=== PATIENT | male | born 1950 | race Caucasian/White ===

== ENCOUNTER → 2017-05-16 | Outpatient (CLI) | payer OTHER | END | disposition home or self-care (01) | LOC: CFH 07:18 | PROVIDERS: ATTEND Internal Medicine | DX: H54.62 Unqualified visual loss, left eye, normal vision right eye (principal); I65.23 Occlusion and stenosis of bilateral carotid arteries | CPT/HCPCS: 93880 ==

== ENCOUNTER → 2017-07-10 | Outpatient (CLI) | payer OTHER | END | disposition home or self-care (01) | LOC: CFH 08:15 | PROVIDERS: ATTEND Internal Medicine Gastroenterology | DX: N26.1 Atrophy of kidney (terminal) (principal); K74.60 Unspecified cirrhosis of liver; B18.2 Chronic viral hepatitis C; K76.0 Fatty (change of) liver, not elsewhere classified | CPT/HCPCS: 76700 ==

== ENCOUNTER 2018-01-11 11:51 | Emergency (ER) | payer OTHER ==
[~2018-01-11] VITALS: Ht 177.8 cm; Wt 111.0 kg
[2018-01-11] MEDS ORDERED: NALOXONE 1 MG/ML, 2ML ONE (12:07)
[2018-01-11] MEDS ORDERED: ONDANSETRON 2MG/ML, 2ML ONE (12:16)
[2018-01-11 12:23] LABS: BASOPHILS # (AUTO) 0.03 x10^3/uL (0-0.1); BASOPHILS % (AUTO) 0 % (0-1); EOSINOPHILS # (AUTO) 0.12 x10^3/uL (0-0.4); EOSINOPHILS % (AUTO) 2 % (1-7); LYMPHOCYTES % (AUTO) 16 % (22-44); MD NO; MEAN CORPUSCULAR HEMOGLOBIN 31.5 pg (27.5-34.5); MEAN CORPUSCULAR HGB CONC 33.6 g/dL (33.2-36.2); MEAN CORPUSCULAR VOLUME 93.7 fL (81-97); MONOCYTES # (AUTO) 0.64 x10^3/uL (0.2-0.8); MONOCYTES % (AUTO) 9 % (2-9); NEUTROPHILS # (AUTO) 5.03 x10^3/uL (1.8-6.8); NEUTROPHILS % (AUTO) 73 % (42-75); PLATELET COUNT 208 x10^3/uL (130-400); RED BLOOD COUNT 4.86 x10^6/uL (4.38-5.82); RED CELL DISTRIBUTION WIDTH 13.9 % (9.4-14.8)
[2018-01-11 12:30] LABS: INTERNATIONAL NORMALIZED RATIO 1.02 (0.93-1.1); PROTHROMBIN TIME 10.6 Seconds (9.6-11.5)
[2018-01-11] MEDS ORDERED: ONDANSETRON 2MG/ML, 2ML IVPush ONE (12:30)
[2018-01-11] MEDS ORDERED: SUCCINYLCHOLINE 20 MG/ML, 10ML IVPush ONE (12:30)
[2018-01-11] MEDS ORDERED: PROPOFOL 100 ML IV PRN (12:30)
[2018-01-11] MEDS ORDERED: ETOMIDATE 20 MG/10 ML IVPush ONE (12:30)
[2018-01-11] MEDS ORDERED: ALTEPLASE 1 MG/ML ONE ×2 (12:47→13:15)
[2018-01-11] MEDS ORDERED: PLEASE ENTER PATIENTS WEIGHT MC SCH (13:00)
[2018-01-11] MEDS ORDERED: MIDAZOLAM 1 MG/ML, 5ML IVPush ONE (13:00)
[2018-01-11] MEDS ORDERED: OMNIPAQUE 350 MG/ML, 100ML BOTTLE ONE (13:15)
[2018-01-11 13:23] LABS: FIO2 80 %
[2018-01-11] MEDS ORDERED: SUCCINYLCHOLINE 20 MG/ML, 10ML ONE (14:00)
[2018-01-11] MEDS ORDERED: PROPOFOL 10 MG/ML, 100ML IV ONE (14:00)
[2018-01-11] MEDS ORDERED: MIDAZOLAM 1 MG/ML, 5ML ONE (14:00)
[2018-01-11] MEDS ORDERED: ETOMIDATE 20 MG/10 ML ONE (14:00)
[2018-01-11] MEDS ORDERED: PROPOFOL 100 ML IV ONE (14:26)
[2018-01-11 14:45] VITALS: BP 116/86
[2018-01-11] MEDS ORDERED: MIDAZOLAM 1 MG/ML, 2ML IVPush PRN (16:00)
[2018-01-11] MEDS ORDERED: ALTEPLASE 81 MG in VIAL 1 EACH IV ONE (16:00)
[2018-01-11] MEDS ORDERED: ALTEPLASE 9 MG in SYRINGE 1 EA IV ONE (16:00)
[2018-01-11] MEDS ORDERED: ICN MIDAZOLAM 0.5 MG/ML IV IVPush PRN (16:00)
== END 2018-01-12 00:41 | disposition home or self-care (01) ==
LOC: ED 12:03
DX: I63.9 Cerebral infarction, unspecified (principal); I10 Essential (primary) hypertension; J96.01 Acute respiratory failure with hypoxia
CPT/HCPCS: 31500; 36415; 36600; 37195; 70450; 70496; 70498; 71045; 80047; 82803; 85025; 85610; 85730; 87070; 87205; 93005; 96374; 99291; 99292; J0330; J2250; J2405; J2704; J2997; Q9967; 94002; 96375

== ENCOUNTER → 2018-02-26 | Outpatient (CLI) | payer OTHER | END | disposition home or self-care (01) | LOC: RAD 08:32 | PROVIDERS: ATTEND Internal Medicine Gastroenterology | DX: R13.12 Dysphagia, oropharyngeal phase (principal); K74.60 Unspecified cirrhosis of liver | CPT/HCPCS: 74230 ==